=== PATIENT | male | born 1995 | race Caucasian/White ===

== ENCOUNTER 2025-02-07 07:34 | Emergency (ER) | payer BC | END 2025-02-07 08:30 | disposition home or self-care (01) | LOC: MW.ED 07:34 | DX: Z31.69 Encounter for other general counseling and advice on procreation (principal); I10 Essential (primary) hypertension; Z88.5 Allergy status to narcotic agent; Z79.899 Other long term (current) drug therapy | CPT/HCPCS: 99281 ==